=== PATIENT | male | born 1950 | race Caucasian/White ===

== ENCOUNTER 2016-11-01 10:52 | Day surgery (SDC) | payer OTHER ==
[2016-10-29 16:31] VITALS: BMI 30.3
[~2016-11-01 10:52] MED LIST: HYDROmorphone 1 MG/ML 1 ML SYRINGE IVP PRN; LACTATED RINGERS 1,000 ML IV SCH; ONDANSETRON 4 MG/2 ML VIAL IVP ONE
[2016-11-01 11:34] LABS: Basophils % (A) 1 %; CH 31.5; CHCM 35.4; Eosinophils # (A) 0.2 k/uL (0-0.7); Eosinophils % (A) 3 %; HCT 45.1 % (39.0-53.0); HDW 2.87; Luc # (Auto) 0.15; Luc % (Auto) 2; Lymphocytes # (A) 1.6 k/uL (1.0-4.8); Lymphocytes % (A) 23 %; MCH 31.7 pg (25.0-35.0); MCHC 35.6 g/dL (31.0-37.0); MCV 89.1 fL (80.0-100.0); Mean Platelet Volume 6.5; Monocytes # (A) 0.3 k/uL (0-1.0); Monocytes % (A) 4 %; Neutrophils # (A) 4.7 k/uL (1.3-7.7); Neutrophils % (A) 67 %; RBC 5.06 m/uL (4.30-5.90); RDW 13.1 % (11.5-15.5); WBC 7.1 k/uL (3.8-10.6); WBC (Perox) 7.15
[2016-11-01 11:47] LABS: Anion Gap 10 mmol/L; Blood Urea Nitrogen 21 mg/dL (9-20); Calcium 9.4 mg/dL (8.4-10.2); Carbon Dioxide 26 mmol/L (22-30); Chloride 104 mmol/L (98-107); Glucose 84 mg/dL (74-99); Non-African American GFR(MDRD) >60 (>60 ml/min/1.73 sqM); Potassium 4.4 mmol/L (3.5-5.1); Sodium 140 mmol/L (137-145)
[2016-11-01] MEDS ORDERED: fentaNYL (PF) 50 MCG/ML 2 ML AMP ONE (12:49)
[2016-11-01] MEDS ORDERED: HEPARIN SODIUM 1,000 UNIT/ML VIAL ONE (12:49)
[2016-11-01] MEDS ORDERED: HEPARIN SODIUM,PORCINE 10,000 UNIT/ML 1 ML VIAL ONE (12:49)
[2016-11-01] MEDS ORDERED: PHENYLEPHRINE-0.9% NACL SYG 1 MG/10 ML SYRINGE ONE (12:49)
[2016-11-01] MEDS ORDERED: PROTAMINE SULFATE 10 MG/ML 5 ML VIAL IV ONE (12:49)
[2016-11-01] MEDS ORDERED: HEPARIN SODIUM,PORCINE 5,000 UNIT/ML 1 ML VIAL ONE (12:49)
[2016-11-01] MEDS ORDERED: MIDAZOLAM 2 MG/2 ML VIAL ONE (12:49)
[2016-11-01] MEDS ORDERED: ISOPROTERENOL 250 MCG/1.25 ML SYR IV ONE (12:49)
[2016-11-01] MEDS ORDERED: ePHEDrine 50 MG/ML 1 ML AMP ONE (12:49)
[2016-11-01] MEDS ORDERED: PROPOFOL 10 MG/ML 20 ML VIAL IV ONE (12:49)
[2016-11-01] MEDS ORDERED: HYDROmorphone (PF) 1 MG/ML ONE (12:49)
[2016-11-01] MEDS ORDERED: IV FLUID CONTINUATION 1,000 ML IV ONE (12:49)
[2016-11-01] MEDS ORDERED: IOHEXOL 350 MG/ML 100 ML BOTTLE INJ ONE (13:21)
[2016-11-01] MEDS ORDERED: SODIUM CHLORIDE 0.9% 1,000 ML IV SCH (13:30)
[2016-11-01] MEDS ORDERED: LIDOCAINE 2% INJ 20 MG/ML (20 ML MDV) ONE (13:34)
[2016-11-01] MEDS: LIDOCAINE 2% INJ 20 MG/ML SQ ONE ×2 (13:39→13:45)
[2016-11-01] MEDS ORDERED: HEPARIN SODIUM,PORCINE/D5W PMX 25,000 UNIT in DEXTROSE/WATER 1 500ML.BAG IV ONE (15:20)
[2016-11-01] MEDS ORDERED: HEPARIN SODIUM (1,000 UNIT/ML) 1,000 UNIT in SODIUM CHLORIDE 0.9% 1,000 ML IRRIGATION ONE (15:25)
[2016-11-01] MEDS ORDERED: ADENOSINE 3 MG/ML 4 ML VIAL IVP ONE ×2 (16:09→16:14)
[2016-11-01] MEDS ORDERED: ACETAMINOPHEN IV (For NPO) 1,000 MG in EMPTY BAG 1 BAG IVPB ONE (16:55)
[2016-11-01] MEDS ORDERED: ACETAMINOPHEN TAB 325 MG TAB PO PRN (16:55)
[2016-11-01] MEDS ORDERED: HYDROcodone/APAP 5-325MG 1 EACH TAB PO PRN (16:55)
[2016-11-01 18:29] VITALS: RESP 16
--- NOTE | 2016-11-01 19:36 | CE ---
This is a 65-year-old male patient who was admitted to [facility] about 1 to 2 weeks back with recurrent episodes of palpitations with pre-syncope. Despite beta blockers, he continued to have palpitations and was extremely symptomatic and this was left-sided carotid sinus massage sensitive. He is brought in for an EP study and ablation. The patient was brought to the EP lab in a fasting state. Written informed consent was obtained prior to the procedure. The left shoulder area was prepped and draped as per protocol. A 6-[place] sheath was placed in the left axillary vein. Via this, a decapolar catheter was positioned in the coronary sinus for coronary sinus pacing and recording. Next, the right groin was prepped and draped as per protocol. Three venous sheaths were placed in the right femoral vein. Via these, 3 diagnostic catheters were positioned in the right heart (right atrial catheter, His bundle catheter and RV catheter). Sinus node recovery times of 600 ms, 500 ms and 400 ms were 1033 mg, 1074 ms and 988 ms, respectively. AV node Wenckebach block 360 ms. No evidence for delta waves. No evidence for slow pathway conduction ( ). CS pacing was performed. AV node Wenckebach block 370 ms. Ventricular pacing induced SVT very easily and this was consistent with an orthodromic re-entry with the earliest VA conduction in the distal coronary sinus. The coronary sinus was moved further into the vein to bracket the area of earliest retrograde conduction, but it appeared to be quite active anterolateral. Isuprel was used. Left and right transseptal catheterization was performed. Intracardiac echocardiography was performed. The interatrial septum was identified. Mitral annulus was identified. RA pressure 16/6 mmHg, LA pressure 27 mmHg. Three-D mapping of the mitral annulus, especially anterolaterally, was performed. The retrograde accessory pathway was mapped during tachycardia as well as during lead pacing. The earliest mechanical termination of VA conduction occurred. We then resumed after starting Isuprel once again. RF ablation was delivered at this site of pump termination and this resulted in a change in the activation sequence of V pacing. Following that, SVT could not be induced, despite high-dose Isuprel. Adenosine was used 18 mg along with Isuprel, which resulted in complete VA block. Testing was continued for about 45 minutes to an hour on high-dose Isuprel and there was no recovery of VA conduction via the accessory pathway No other arrhythmias were induced. No atrial fibrillation was induced. No other SVT was induced. All catheters removed, heparin was reversed and sheaths were removed. RESULT: Diagnostic electrophysiology study revealing normal sinus node function, normal atrioventricular node function, easily inducible supraventricular tachycardia consistent with orthotopic re-entry with left anterolateral accessory pathway, retrogradely conducting only. Successful mapping and ablation was performed. Tachycardia was rendered noninducible at the end of the procedure. Intracardiac echocardiography did not reveal any pericardial effusion. PROCEDURES PERFORMED: Comprehensive diagnostic EP study, CS pacing and recording, intracardiac echocardiography, 3-D mapping, left and right transseptal catheterization, SVT ablation, program stimulation following Isuprel.
[2016-11-01] MEDS: ASPIRIN 325 MG TAB PO SCH (21:36)
[2016-11-02] MEDS ORDERED: LEVOTHYROXINE 50 MCG TAB PO SCH (06:30)
--- NOTE | 2016-11-02 08:28 | PN ---
Mr. Rick Greenberg is a 65-year-old male patient who had recurrent very symptomatic SVT with syncope at 160 beats a minute, and drug refractory and despite beta blockers. He was on ( ). He had orthodromic re-entry with left lateral accessory pathway and he underwent successful ablation for this via the transseptal route. He is doing well today. His groin has healed. There is no hematoma, no bruising. There is no hematoma, no swelling, no tenderness. Heart sounds S1, S2 are normal. No murmurs, no gallops. Breath sounds are normal. No rhonchi. No crackles. Extremities are warm. No edema. IMPRESSION: 1. Recurrent supraventricular tachycardia, orthodromic re-entry, status post successful ablation of the left lateral accessory pathway. No other arrhythmias were inducible. PLAN: Discharge home on aspirin 325 mg p.o. daily for one month then reduce to 81 p.o. daily; thereafter continue with ( ), stop metoprolol. Follow up with katherine Landers for groin check in a week.
[2016-11-02 08:31] VITALS: BP 107/62; TEMP 97.6
[2016-11-02] MEDS: ASPIRIN 325 MG TAB PO SCH (10:23)
[2016-11-02 11:32] VITALS: PULSE 81
== END 2016-11-02 11:56 | disposition home or self-care (01) ==
LOC: CATHEP 10:52 → 3OBS 16:41 → CATHEP 11-02 11:56
PROVIDERS: ATTEND Internal Medicine Clinical Cardiac Electrophysiology
DX: I47.1 Supraventricular tachycardia (principal); R55 Syncope and collapse; Z87.891 Personal history of nicotine dependence; E07.9 Disorder of thyroid, unspecified; Z79.899 Other long term (current) drug therapy
CPT/HCPCS: 85347; 93462; 93623; 93662; 93613; 93653; 80048; 85025; C1769 ×2; C1894 ×2; C1730 ×3; C1893; C1759; C1732; J2001; J2250; J2720; J1644 ×3; Q9967; J3010; J1170; J0153; J2370; J2704